=== PATIENT | male | born 1945 | race Two or more races ===

== ENCOUNTER 2025-02-26 07:52 | Inpatient (IN) | payer OTHER ==
[~2025-02-26] VITALS: Ht 167.6 cm; Wt 70.8 kg
--- NOTE | 2025-02-26 07:58 | NUR ---
SE RECIBE PTE ALERTA Y ORIENTADA X3. REFIERE DOLOR ABDOMINAL DESDE HOY EN LA MANANA. SE MIDE SV Y SE UBICA
[2025-02-26] MEDS ORDERED: KETOROLAC TROMETHAMINE 60 MG VIAL IM ONE ×2 (08:45→08:59)
--- NOTE | 2025-02-26 09:13 | NUR ---
SE ORIENTA A PACIENTE SOBRE TRATAMIENTO MEDICO, REFIERE ENTENDER. SE COLECTAN MUESTRAS DE LABORATORIO BAJO MEDIDAS ASEPTICAS. SE ENTREGA ENVASE PARA U/A. SE ADMINISTRA MEDICAMENTO ANIKA ORDEN MEDICA. PERSONAL DE RADIALOGIA REALIZA CT.
[2025-02-26 09:19] LABS: BASO % 0.4 % (0.1-1.2); EOS # 0.02 (0.04-0.54); EOS % 0.2 % (0.7-7.0); LYMPH # 1.27 (1.18-3.74); LYMPH % 12.5 % (19.3-53.1); MEAN PLATELET VOLUME 9.80 fl (9.4-12.4); MONO # 0.80 (0.24-0.82); MONO % 7.9 % (4.7-12.5); NEUT # 8.01 (1.56-6.13); NEUT % 78.8 % (34.0-71.1); RED CELL DISTRIBUTION WIDTH 14.4 % (11.6-14.4)
[2025-02-26 09:44] LABS: ALT/SGPT 24.0 U/L (12-78); AST/SGOT 21.0 U/L (15-37); BILIRUBIN TOTAL 1.87 mg/dL (0.3-1.2); BUN CREA RATIO 11.0 (7.0-25.0); CREATININE SERUM 0.87 mg/dL (0.70-1.30); GFR 84.22; GLOBULINA 4.2 G/DL (2.4-3.5); GLUCOSE FASTING 104.0 mg/dL (65-100); OSMOLALITY SERUM 277.0 MOSM/KG (275-295)
[2025-02-26 09:49] LABS: URINE APPEARANCE Clear; URINE BILIRRUBIN Small (NEGATIVE); URINE BLOOD Negative; URINE COLOR Dark Yellow; URINE GLUCOSE Negative (NEGATIVE); URINE LEUKOCYTE Negative; URINE NITRATE Negative; URINE PROTEIN 30 (NEGATIVE); URINE UROBILINOGEN 0.2 E.U./dl
[2025-02-26 09:54] LABS: URINE BACTERIA 5.9 uL (0.0-1933); URINE EPITHELIAL CELLS 4.6 uL (0.0-38.8); URINE RBC 10.7 uL (0.0-20.8); URINE WBC 4.3 uL (0.0-23.2)
[2025-02-26 10:14] LABS: URINE CAST 0.58 uL (0.0-1.40); URINE KETONE 40 (NEGATIVE)
[2025-02-26 12:19] LABS: INR 1.05
[2025-02-26] MEDS ORDERED: 0.9 % SODIUM CHLORIDE 1,000 ML IV SCH (17:00)
[2025-02-26] MEDS ORDERED: FAMOTIDINE/PF 20 MG in 0.9 % SODIUM CHLORIDE 8 ML IV PUSH SCH (17:00)
[2025-02-26] MEDS ORDERED: MORPHINE SULFATE 2 MG/ML SYRINGE IV SCH (17:00)
[2025-02-26] MEDS ORDERED: ONDANSETRON HCL 4 MG in 0.9 % SODIUM CHLORIDE 50 ML IV PRN (17:00)
[2025-02-26] MEDS ORDERED: KETOROLAC TROMETHAMINE 15 MG VIAL IU ONE (17:15)
[2025-02-26] MEDS ORDERED: MORPHINE SULFATE 4 MG/ML CARTRIDGE IV PRN (17:15)
[2025-02-26] MEDS ORDERED: ACETAMINOPHEN 500 MG GEL..CAP PO PRN (17:15)
[2025-02-26] MEDS ORDERED: FAMOTIDINE/PF 20 MG/2 ML VIAL ONE (17:47)
[2025-02-26] MEDS ORDERED: KETOROLAC TROMETHAMINE 30 MG VIAL ONE (17:47)
[2025-02-26 17:54] VITALS: BP 156/84
[2025-02-26] MEDS ORDERED: PIPERACILLIN/TAZOBACTAM SODIUM 3.375 GM in DEXTROSE 5 % IN WATER 100 ML IV SCH (18:00)
[2025-02-26 18:05] VITALS: BP 156/84; O2SAT 97
[2025-02-26] MEDS ORDERED: PIPERACILLIN/TAZOBACTAM SODIUM 3.375 GM VIAL IV ONE (18:15)
[2025-02-26] MEDS ORDERED: BUPIVACAINE HCL/MPF 0.5% 30ML VIAL ONE (20:01)
[2025-02-26] MEDS ORDERED: SUGAMMADEX SODIUM 200 MG/2 ML VIAL IV ONE ×2 (22:06→22:30)
[2025-02-27] MEDS ORDERED: MORPHINE SULFATE 4 MG/ML VIAL IV ONE ×2 (00:20→00:50)
[2025-02-27 03:28] VITALS: BP 133/73; O2SAT 95
[2025-02-27] MEDS ORDERED: SIMETHICONE 125 MG CAPSULE PO SCH (09:00)
[2025-02-27] MEDS ORDERED: SUCRALFATE 1 G TABLET PO SCH (09:00)
[2025-02-27] MEDS ORDERED: LACTOBACILLUS ACIDOPHILUS 1 CAP CAP PO SCH (09:00)
[2025-02-27 09:57] VITALS: BP 132/82; O2SAT 96
[2025-02-27 16:04] VITALS: BP 128/70; O2SAT 90
[2025-02-28 03:30] VITALS: BP 111/59; O2SAT 95
[2025-02-28 06:13] LABS: BASO % 0.4 % (0.1-1.2); EOS # 0.45 (0.04-0.54); EOS % 4.0 % (0.7-7.0); LYMPH # 2.12 (1.18-3.74); LYMPH % 19.0 % (19.3-53.1); MEAN PLATELET VOLUME 10.30 fl (9.4-12.4); MONO # 1.24 (0.24-0.82); MONO % 11.1 % (4.7-12.5); NEUT # 7.27 (1.56-6.13); NEUT % 65.0 % (34.0-71.1); RED CELL DISTRIBUTION WIDTH 14.5 % (11.6-14.4)
[2025-02-28 06:57] LABS: BUN CREA RATIO 10.0 (7.0-25.0); CREATININE SERUM 0.77 mg/dL (0.70-1.30); GFR 96.96; GLUCOSE FASTING 73.0 mg/dL (65-100); OSMOLALITY SERUM 274.0 MOSM/KG (275-295)
[2025-02-28 09:22] VITALS: BP 124/80; O2SAT 95
== END 2025-02-28 12:45 | disposition home or self-care (01) | DRG 352 ==
LOC: ER 07:52 → MEDJ 17:12 → SEC-K 17:12 → MEDI 18:11 → MEDJ 18:12 → O/R 18:36 → MEDJ 23:37 → MEDI 02-28 10:59
PROVIDERS: General Practice; Surgery; ADMIT Student in an Organized Health Care Education/Training Program; ATTEND Student in an Organized Health Care Education/Training Program
PROC: BW21ZZZ Computerized Tomography (CT Scan) of Abdomen and Pelvis (ICD-10-PCS; 2025-02-26)
PROC: 0YQ60ZZ Repair Left Inguinal Region, Open Approach (ICD-10-PCS; principal; 2025-02-26 18:00)
DX: K40.30 Unilateral inguinal hernia, with obstruction, without gangrene, not specified as recurrent (principal)